=== PATIENT | male | born 1965 | race American Indian/Alaskan Native ===

== ENCOUNTER 2017-09-05 11:33 | Emergency (ER) | payer BC, OTHER ==
[~2017-09-05] VITALS: Ht 170.2 cm; Wt 98.0 kg
[~2017-09-05 11:33] MED LIST: ACETAMINOPHEN-C1 TAB PO; ACETAMINOPHEN500 MG PO; AMOXICILLIN500 MG PO; DEXAMETHASONE4 MG PO; DILTIAZEM 24HR180 M3 PO; PRILOSEC OTC20 MG PO
[2017-09-05] MEDS ORDERED: ALPRAZOLAM0.5 MG PO (11:48)
[2017-09-05] MEDS ORDERED: ATIVAN1 MG PO (16:56)
[2017-09-05] MEDS ORDERED: DILTIAZEM 24HR120 M1 PO (16:56)
--- NOTE | 2017-09-05 17:27 | EKG ---
[facility] [address] [facility] [place] [address] Signed Normal sinus rhythm Normal ECG No previous ECGs available Confirmed by NIDIA ARCHIBALD MD ([id number] on 09/05/2017 5:27:23 PM Electronically Signed By: NIDIA ARCHIBALD MD 09/05/17 1727 PATIENT NAME: BRIAN LONDONO Electrocardiogram DATE OF : 61 PHYSICIAN: NIDIA ARCHIBALD MD REPORT #: [id number] REPORT IS CONFIDENTIAL AND NOT TO BE RELEASED WITHOUT AUTHORIZATION
== END 2017-09-05 17:05 | disposition home or self-care (01) ==
LOC: ED 11:33
DX: H81.399 Other peripheral vertigo, unspecified ear (principal); R00.1 Bradycardia, unspecified; I10 Essential (primary) hypertension; F17.200 Nicotine dependence, unspecified, uncomplicated; Z88.8 Allergy status to other drugs, medicaments and biological substances; Z79.899 Other long term (current) drug therapy
CPT/HCPCS: 70551; 80053; 84484; 85025; 93005; 93010; 96374; 99284; J2060

== ENCOUNTER 2018-09-30 18:51 | Emergency (ER) | payer BC, OTHER ==
[~2018-09-30] VITALS: Ht 170.2 cm; Wt 102.1 kg
[~2018-09-30 18:51] MED LIST changes: +ALPRAZOLAM0.5 MG PO; +ATIVAN1 MG PO; +DILTIAZEM 24HR120 M1 PO
[2018-09-30] MEDS ORDERED: LOSARTAN POTASS50 MG PO (19:10)
== END 2018-09-30 21:46 | disposition home or self-care (01) ==
LOC: ED 18:51
DX: K30 Functional dyspepsia (principal); I10 Essential (primary) hypertension; F17.200 Nicotine dependence, unspecified, uncomplicated; Z79.899 Other long term (current) drug therapy
CPT/HCPCS: 76705; 80053; 81001; 83690; 85025; 96361; 99284-25; J1170; J2405; J7030

== ENCOUNTER 2019-10-11 17:20 | Emergency (ER) | payer OTHER ==
[~2019-10-11] VITALS: Ht 170.2 cm; Wt 102.1 kg
[~2019-10-11 17:20] MED LIST changes: +LOSARTAN POTASS50 MG PO
== END 2019-10-11 20:45 | disposition home or self-care (01) ==
LOC: ED 17:20
DX: S09.90XA Unspecified injury of head, initial encounter (principal); I10 Essential (primary) hypertension; Z87.891 Personal history of nicotine dependence; Z88.0 Allergy status to penicillin; Z88.1 Allergy status to other antibiotic agents; Z79.899 Other long term (current) drug therapy; W01.0XXA Fall on same level from slipping, tripping and stumbling without subsequent striking against object, initial encounter
CPT/HCPCS: 70450; 71101; 99284-25; A9270

== ENCOUNTER 2021-04-25 00:44 | Emergency (ER) | payer OTHER ==
[~2021-04-25] VITALS: Ht 170.2 cm; Wt 102.1 kg
== END 2021-04-25 02:52 | disposition home or self-care (01) ==
LOC: ED 00:44
DX: M25.462 Effusion, left knee (principal); I10 Essential (primary) hypertension; Z87.891 Personal history of nicotine dependence; Z88.0 Allergy status to penicillin; Z88.1 Allergy status to other antibiotic agents; Z79.899 Other long term (current) drug therapy
CPT/HCPCS: 73560; 99283-25

== ENCOUNTER 2024-07-10 12:25 | Emergency (ER) | payer OTHER ==
[~2024-07-10] VITALS: Ht 170.2 cm; Wt 98.0 kg
[2024-07-10] MEDS ORDERED: BACTRIM DS TAB1 EACH PO (16:22)
[2024-07-10 16:31] VITALS: BP 132/87
== END 2024-07-10 16:33 | disposition home or self-care (01) ==
LOC: ED 12:25
DX: L03.011 Cellulitis of right finger (principal); I10 Essential (primary) hypertension; Z88.1 Allergy status to other antibiotic agents; Z87.891 Personal history of nicotine dependence
CPT/HCPCS: 10060; 99283-25